=== PATIENT | male | born 1965 | race Two or more races ===

== ENCOUNTER 2017-05-07 02:36 | Emergency (ER) | payer MEDICAID ==
[~2017-05-07] VITALS: Ht 167.6 cm; Wt 63.7 kg
[2017-05-07] MEDS ORDERED: MAALOX/HYOSCYAMINE/LIDOCAINE 45 ML BTL ONE (02:56)
[2017-05-07] MEDS ORDERED: ONDANSETRON ODT 4 MG ONE (02:56)
[2017-05-07] MEDS ORDERED: FAMOTIDINE 20 MG TABLET ONE (02:56)
[2017-05-07] MEDS ORDERED: FAMOTIDINE 20 MG TABLET PO ONE (03:00)
[2017-05-07] MEDS ORDERED: ONDANSETRON ODT 4 MG PO ONE (03:00)
[2017-05-07] MEDS ORDERED: MAALOX/HYOSCYAMINE/LIDOCAINE 45 ML BTL PO ONE (03:00)
[2017-05-07 03:21] LABS: ASPARTATE AMINO TRANSFERASE 19 U/L (15-37); BLOOD UREA NITROGEN 9 mg/dL (7-18)
[2017-05-07 03:49] LABS: HEMATOCRIT 48.8 % (39.2-51.8); HEMOGLOBIN 16.5 g/dL (13.7-18.0); WHITE BLOOD COUNT 9.1 x10^3/uL (3.4-10)
[2017-05-07 03:50] LABS: DIFF TOTAL CELLS COUNTED 100 CELL DIFF
[2017-05-07 03:55] LABS: VERIFY COUNTS? YES
[2017-05-07 03:56] LABS: LARGE PLATELETS 1+; POLYCHROMASIA 1+
[2017-05-07 04:20] VITALS: BP 125/76
== END 2017-05-07 05:02 | disposition home or self-care (01) ==
LOC: ED 02:51
DX: K29.00 Acute gastritis without bleeding (principal); I10 Essential (primary) hypertension; F15.10 Other stimulant abuse, uncomplicated; F12.10 Cannabis abuse, uncomplicated; F14.10 Cocaine abuse, uncomplicated
CPT/HCPCS: 36415; 74020; 76700; 80053; 83690; 85025; 93005; 99285; Q0162

== ENCOUNTER 2017-05-07 16:45 | Emergency (ER) | payer MEDICAID ==
[~2017-05-07] VITALS: Ht 157.5 cm; Wt 62.2 kg
[2017-05-07 16:59] VITALS: BP 166/98
[2017-05-07] MEDS ORDERED: ONDANSETRON ODT 4 MG ONE (18:16)
[2017-05-07] MEDS ORDERED: MAALOX/HYOSCYAMINE/LIDOCAINE 45 ML BTL ONE (18:16)
[2017-05-07] MEDS ORDERED: FAMOTIDINE 20 MG TABLET ONE (18:16)
[2017-05-07] MEDS ORDERED: FAMOTIDINE 20 MG TABLET PO ONE (18:30)
[2017-05-07] MEDS ORDERED: MAALOX/HYOSCYAMINE/LIDOCAINE 45 ML BTL PO ONE (18:30)
[2017-05-07] MEDS ORDERED: ONDANSETRON ODT 4 MG PO ONE (18:30)
== END 2017-05-07 19:19 | disposition home or self-care (01) ==
LOC: ED 18:50
DX: G89.29 Other chronic pain (principal); R10.13 Epigastric pain; I10 Essential (primary) hypertension
CPT/HCPCS: 99284; Q0162